=== PATIENT | male | born 1995 | race Caucasian/White ===

== ENCOUNTER 2019-04-07 00:49 | Emergency (ER) | payer OTHER ==
[2019-04-07] MEDS ORDERED: DOXYcycline CAP(*) 100 MG PO ONE (02:07)
--- NOTE | 2019-04-07 02:11 | ED ---
Bite Injury/Animal - HPI Summary HPI Summary: 23 year old male presents with cat bite. 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 Patient 's immunizations, tetanus and rabies are UTD. Cat immunizations are UTD. Patient cleaned the wound immediately after the incident. Patient denies numbness or tingling in the affected hand and arm. Patient states pain is 2/10. Patient denies headache, chest pain or heart palpitations. Patient has no significant medical history and is not on any medications. Patient has an allergy to penicillin which consists of rash/hives and airway closure. - History of Current Complaint Chief Complaint: EDAnimalBite Stated Complaint: CAT BITE PER PT Time Seen by Provider: 04/07/19 01:01 Pain Intensity: 2 - Allergies/Home Medications Allergies/Adverse Reactions: Allergies Allergy/AdvReac Type Severity Reaction Status Date / Time Penicillins Allergy Hives Verified 04/07/19 00:53 PMH/Surg Hx/FS Hx/Imm Hx Endocrine/Hematology History: Denies: Hx Anticoagulant Therapy Respiratory History: Denies: Hx Asthma Infectious Disease History: Yes Infectious Disease History: Denies: Traveled Outside the [place] in Last 30 Days - Family History Known Family History: Positive: Non-Contributory - Social History Alcohol Use: Occasionally Substance Use Type: Reports: None Smoking Status (MU): Never Smoked Tobacco Review of Systems Constitutional: Negative Eyes: Negative ENT: Negative Cardiovascular: Negative Respiratory: Negative Gastrointestinal: Negative Genitourinary: Negative Positive: no symptoms reported Musculoskeletal: Negative Positive: Other - cat bite on left hand near thumb Neurological: Negative Psychological: Normal All Other Systems Reviewed And Are Negative: Yes Physical Exam Triage Information Reviewed: Yes Vital Signs On Initial Exam: Initial Vitals Temp Pulse Resp BP Pulse Ox 98.4 F 64 16 128/86 97 04/07/19 00:52 04/07/19 00:52 04/07/19 00:52 04/07/19 00:52 04/07/19 00:52 Vital Signs Reviewed: Yes Appearance: Positive: Well-Appearing, No Pain Distress Skin: Positive: Warm, Dry, Other - puncture wound to right hand Head/Face: Positive: Normal Head/Face Inspection Eyes: Positive: Normal, EOMI, THALIA, Conjunctiva Clear ENT: Positive: Normal ENT inspection, Pharynx normal. Negative: Nasal drainage Neck: Positive: Supple, Nontender, No Lymphadenopathy Respiratory/Lung Sounds: Positive: Clear to Auscultation, Breath Sounds Present Cardiovascular: Positive: Normal, RRR, Pulses are Symmetrical in both Upper and Lower Extremities Abdomen Description: Positive: Nontender, Soft Bowel Sounds: Positive: Present Musculoskeletal: Positive: Normal, Strength/ROM Intact, Pain @ - small puncture wound on right thumb, 2/10. Negative: Edema Left, Edema Right Neurological: Positive: Normal Psychiatric: Positive: Normal Diagnostics - Vital Signs Vital Signs Temp Pulse Resp BP Pulse Ox 04/07/19 00:52 98.4 F 64 16 128/86 97 - Laboratory Lab Statement: Any lab studies that have been ordered have been reviewed, and results considered in the medical decision making process. Bite Injury Course/Dx - Course Course Of Treatment: 23 year old male presents with cat bite. 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 Patient's immunizations, tetanus and rabies are UTD. Cat immunizations are UTD. Patient cleaned the wound immediately after the incident. Patient denies numbness or tingling in the affected hand and arm. Patient states pain is 2/10. Patient denies headache, chest pain or heart palpitations. Patient has no significant medical history and is not on any medications. Patient has an allergy to penicillin which consists of rash/hives and airway closure. On exam, no lymphadenopathy. puncture type wound to right hand. Strength is 5/5 and sensation is intact in the upper extremities bilaterally. Full ROM of upper extremities. Pulses 2+ bilaterally in the upper and lower extremities. Neuro exam is without deficits. Lungs CTA. Heart RRR. gave doxycycline. warned if develop any signs of infection to return. - Diagnoses Differential Diagnosis/HQI/PQRI: Positive: Puncture, Rabies Exposure Provider Diagnosis: Cat bite of right hand Discharge - Sign-Out/Discharge Documenting (check all that apply): Patient Departure Patient Received Moderate/Deep Sedation with Procedure: No - Discharge Plan Condition: Good Disposition: HOME Prescriptions: DOXYcycline CAP(*) [DOXYcycline 100MG CAP(*)] 100 mg PO BID #9 cap Patient Education Materials: Animal Bite (ED) Referrals: No Primary Care Phys,NOPCP [Primary Care Provider] - Additional Instructions: Wash area twice a day with soap and water Take doxycyline twice a day for 5 days Take Tylenol or ibuprofen every 6 hours as needed for pain Ice, elevate Return to ED develop fever, spreading redness, or any new or worsening symptoms - Billing Disposition and Condition Condition: GOOD Disposition: Home
[2019-04-07 02:28] VITALS: BP 133/73
== END 2019-04-07 02:27 | disposition home or self-care (01) ==
LOC: ED 00:49
DX: S61.451A Open bite of right hand, initial encounter (principal); W55.01XA Bitten by cat, initial encounter; Y92.219 Unspecified school as the place of occurrence of the external cause; Y99.8 Other external cause status; Z88.0 Allergy status to penicillin
CPT/HCPCS: 99282; A9270-GY